=== PATIENT | male | born 1980 | race Caucasian/White ===

== ENCOUNTER 2020-04-19 18:32 | Emergency (ER) | payer BC ==
[2020-04-19] MEDS ORDERED: fentaNYL 100 MCG/2 ML SDV IVPUSH ONE (18:57)
[2020-04-19] MEDS ORDERED: Lactated Ringers 500 ML IV ONE (18:57)
[2020-04-19] MEDS ORDERED: Lactated Ringers 1,000 ML IV SCH (19:00)
[2020-04-19] MEDS ORDERED: Sodium Chloride 0.9% 10 ML Syringe FLUSH PRN (19:07)
[2020-04-19] MEDS ORDERED: Iopamidol 755 Mg/ML 100 ML Bottle IVPUSH ONE (19:07)
[2020-04-19] MEDS ORDERED: Iopamidol 755 MG/ML 50 ML Bottle IVPUSH ONE (19:07)
--- NOTE | 2020-04-19 19:08 | EDM.PDOC ---
ED HPI GENERAL MEDICAL PROBLEM Left Shoulder Pain Score (Numeric/FACES): 9 <Jaison Pucektt - Last Filed: 04/19/20 19:02> <Tyrese Heredia - Last Filed: 04/19/20 21:48> - General Chief Complaint: Trauma Stated Complaint: [facility] Time Seen by Provider: 04/19/20 18:32 - History of Present Illness INITIAL COMMENTS - FREE TEXT/NARRATIVE: 40-year-old male brought in by [facility]. Patient was thrown off a horse landing on his left shoulder. This occurred little over an hour ago maybe an hour and a half ago. The patient has been drinking. He said 8-10 beers this afternoon. He was thrown off the horse he does not think he lost consciousness but he is not certain. He has significant shoulder pain. He is denying pain elsewhere but he is really foc used on his shoulder injury. Denies significant past medical history. He had a benign lump removed out of his throat at one point other than the surgical history is unremarkable (Jaison Puckett) I have taken over the care of this patient. I received a report from Dr. Holland. 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 [No Known Home Meds] 08/11/16 [History] Past Medical History - Past Health History Medical/Surgical History: Denies Medical/Surgical History Respiratory History: Reports: Other (See Below) Other Respiratory History: lump to throat removed-benign <Jaison Puckett - Last Filed: 04/19/20 19:02> Social & Family History - Tobacco Use Smoking Status *Q: Never Smoker - Caffeine Use Caffeine Use: Reports: Coffee - Recreational Drug Use Recreational Drug Use: No <Jaison Puckett - Last Filed: 04/19/20 19:02> Review of Systems - Review of Systems Review Of Systems: See Below Constitutional: Reports: No Symptoms Eyes: Reports: No Symptoms Ears: Reports: No Symptoms Nose: Reports: No Symptoms Mouth/Throat: Reports: No Symptoms Respiratory: Reports: Pleuritic Chest Pain, Other (Respirations are a little quick with slightly diminished O2 saturation). Denies: Cough, Sputum, Hemoptysis Cardiovascular: Reports: No Symptoms GI/Abdominal: Reports: No Symptoms Genitourinary: Reports: No Symptoms Musculoskeletal: Reports: Shoulder Pain (Shoulder on the left side is very tender it is suspected he has a clavicle injury) Skin: Reports: No Symptoms Neurological: Reports: No Symptoms Psychiatric: Reports: No Symptoms <Jaison Puckett - Last Filed: 04/19/20 19:02> ED EXAM, GENERAL - Physical Exam Exam: See Below Exam Limited By: Other (Patient states he had 8-10 beers this afternoon but otherwise answers questions appropriately) General Appearance: Alert, Moderate Distress (From the pain) Eye Exam: Bilateral Eye: EOMI, Normal Inspection, PERRL Ears: Normal External Exam, Normal Canal, Hearing Grossly Normal, Normal TMs Nose: Normal Inspection, Normal Mucosa, No Blood Throat/Mouth: Normal Inspection, Normal Lips, Normal Teeth Head: Atraumatic, Normocephalic Neck: Normal Inspection, Supple, Non-Tender, Other (Some vague left-sided discomfort with palpation a lot of this could be coming from his shoulder region). No: Lymphadenopathy (L), Lymphadenopathy (R) Respiratory/Chest: No Respiratory Distress, Lungs Clear, Normal Breath Sounds Cardiovascular: Regular Rate, Rhythm, No Edema, No Murmur GI/Abdominal: Normal Bowel Sounds, Soft, Non-Tender, Pelvis Stable Back Exam: Normal Inspection. No: CVA Tenderness (L), CVA Tenderness (R) Extremities: Normal Inspection, No Pedal Edema Neurological: Alert, Normal Cognition, No Motor/Sensory Deficits Psychiatric: Anxious (Appropriately so given his discomfort and injury) Skin Exam: Warm, Dry, Intact Lymphatic: No Adenopathy <Jaison Puckett - Last Filed: 04/19/20 19:02> Course <Jaison Puckett - Last Filed: 04/19/20 19:02> <Tyrese Heredia - Last Filed: 04/19/20 21:48> - Vital Signs Last Recorded V/S: Last Vital Signs Temp 98.1 F 04/19/20 19:25 Pulse 86 04/19/20 19:25 Resp 21 H 04/19/20 19:25 BP 117/81 04/19/20 19:25 Pulse Ox 96 04/19/20 19:25 - Orders/Labs/Meds Orders: Active Orders 24 hr Category Date Time Status Cervical Spine wo Cont [CT] Stat Exams 04/19/20 18:53 Taken Chest 1V Frontal [CR] Stat Exams 04/19/20 18:52 Taken Chest Abdomen Pelvis w Cont [CT] Stat Exams 04/19/20 18:53 Ordered Head wo Cont [CT] Stat Exams 04/19/20 18:53 Ordered CORONAVIRUS COVID-19 RAPID [MOLEC] Stat Lab 04/19/20 20:59 Received PATIENT RETYPE [BBK] Routine Lab 04/19/20 19:59 Ordered Lactated Ringers [Ringers, Lactated] 1,000 ml Med 04/19/20 19:00 Active IV ASDIRECTED Sodium Chloride 0.9% [Saline Flush] Med 04/19/20 19:07 Active 10 ml FLUSH ONETIME PRN Medication Orders Lactated Ringer's (Ringers, Lactated) 1,000 mls @ 150 mls/hr IV ASDIRECTED ERIC Last Admin: 04/19/20 19:58 Dose: 150 mls/hr Documented by: JOEY Sodium Chloride (Saline Flush) 10 ml FLUSH ONETIME PRN PRN Reason: IV FLUSH Last Admin: 04/19/20 19:38 Dose: 10 ml Documented by: DRAGAN Labs: Laboratory Tests 04/19/20 04/19/20 04/19/20 Range/Units 18:40 18:40 18:40 WBC 17.43 H (4.23-9.07) K/mm3 RBC 5.03 (4.63-6.08) M/mm3 Hgb 14.6 (13.7-17.5) gm/dl Hct 43.2 (40.1-51.0) % MCV 85.9 (79.0-92.2) fl MCH 29.0 (25.7-32.2) pg MCHC 33.8 (32.2-35.5) g/dl RDW Std Deviation 40.9 (35.1-43.9) fL Plt Count 266 (163-337) K/mm3 MPV 9.5 (9.4-12.3) fl Neut % (Auto) 82.0 H (34.0-67.9) % Lymph % (Auto) 10.2 L (21.8-53.1) % Elliott % (Auto) 6.3 (5.3-12.2) % Eos % (Auto) 1.1 (0.8-7.0) Baso % (Auto) 0.1 (0.1-1.2) % Neut # (Auto) 14.29 H (1.78-5.38) K/mm3 Lymph # (Auto) 1.78 (1.32-3.57) K/mm3 Elliott # (Auto) 1.09 H (0.30-0.82) K/mm3 Eos # (Auto) 0.19 (0.04-0.54) K/mm3 Baso # (Auto) 0.02 (0.01-0.08) K/mm3 Manual Slide Review Normal smear PT 10.5 (9.7-11.7) SECONDS INR 0.98 APTT 22 (22-31) SECONDS Sodium 138 (136-145) mEq/L Potassium 3.9 (3.5-5.1) mEq/L Chloride 103 (98-107) mEq/L Carbon Dioxide 26 (21-32) mEq/L Anion Gap 12.9 (5-15) BUN 17 (7-18) mg/dL Creatinine 1.1 (0.7-1.3) mg/dL Est Cr Clr Drug Dosing 110.69 mL/min Estimated GFR (MDRD) > 60 (>60) mL/min BUN/Creatinine Ratio 15.5 (14-18) Glucose 124 H (74-106) mg/dL Lactic Acid (0.4-2.0) mmol/L Calcium 8.8 (8.5-10.1) mg/dL Total Bilirubin 0.2 (0.2-1.0) mg/dL AST 22 (15-37) U/L ALT 35 (16-63) U/L Alkaline Phosphatase 111 (46-116) U/L Total Protein 7.4 (6.4-8.2) g/dl Albumin 4.2 (3.4-5.0) g/dl Globulin 3.2 gm/dL Albumin/Globulin Ratio 1.3 (1-2) Amylase 32 (25-115) U/L Urine Color (Yellow) Urine Appearance (Clear) Urine pH (5.0-8.0) Ur Specific [place] (1.005-1.030) Urine Protein (Negative) Urine Glucose (UA) (Negative) Urine Ketones (Negative) Urine Occult Blood (Negative) Urine Nitrite (Negative) Urine Bilirubin (Negative) Urine Urobilinogen (0.2-1.0) Ur Leukocyte Esterase (Negative) Urine RBC (0-5) /hpf Urine WBC (0-5) /hpf Ur Squamous Epith Cells (0-5) /hpf Urine Bacteria (FEW) /hpf Urine Mucus (FEW) /hpf Ethyl Alcohol 0.00 (0.00) gm% Blood Type Gel Antibody Screen 04/19/20 04/19/20 04/19/20 Range/Units 18:40 18:40 20:55 WBC (4.23-9.07) K/mm3 RBC (4.63-6.08) M/mm3 Hgb (13.7-17.5) gm/dl Hct (40.1-51.0) % MCV (79.0-92.2) fl MCH (25.7-32.2) pg MCHC (32.2-35.5) g/dl RDW Std Deviation (35.1-43.9) fL Plt Count (163-337) K/mm3 MPV (9.4-12.3) fl Neut % (Auto) (34.0-67.9) % Lymph % (Auto) (21.8-53.1) % Elliott % (Auto) (5.3-12.2) % Eos % (Auto) (0.8-7.0) Baso % (Auto) (0.1-1.2) % Neut # (Auto) (1.78-5.38) K/mm3 Lymph # (Auto) (1.32-3.57) K/mm3 Elliott # (Auto) (0.30-0.82) K/mm3 Eos # (Auto) (0.04-0.54) K/mm3 Baso # (Auto) (0.01-0.08) K/mm3 Manual Slide Review PT (9.7-11.7) SECONDS INR APTT (22-31) SECONDS Sodium (136-145) mEq/L Potassium (3.5-5.1) mEq/L Chloride (98-107) mEq/L Carbon Dioxide (21-32) mEq/L Anion Gap (5-15) BUN (7-18) mg/dL Creatinine (0.7-1.3) mg/dL Est Cr Clr Drug Dosing mL/min Estimated GFR (MDRD) (>60) mL/min BUN/Creatinine Ratio (14-18) Glucose (74-106) mg/dL Lactic Acid 1.9 (0.4-2.0) mmol/L Calcium (8.5-10.1) mg/dL Total Bilirubin (0.2-1.0) mg/dL AST (15-37) U/L ALT (16-63) U/L Alkaline Phosphatase (46-116) U/L Total Protein (6.4-8.2) g/dl Albumin (3.4-5.0) g/dl Globulin gm/dL Albumin/Globulin Ratio (1-2) Amylase (25-115) U/L Urine Color Yellow (Yellow) Urine Appearance Clear (Clear) Urine pH 5.5 (5.0-8.0) Ur Specific [place] 1.015 (1.005-1.030) Urine Protein Negative (Negative) Urine Glucose (UA) Negative (Negative) Urine Ketones Negative (Negative) Urine Occult Blood Trace-intact H (Negative) Urine Nitrite Negative (Negative) Urine Bilirubin Negative (Negative) Urine Urobilinogen 0.2 (0.2-1.0) Ur Leukocyte Esterase Negative (Negative) Urine RBC Not seen (0-5) /hpf Urine WBC 0-5 (0-5) /hpf Ur Squamous Epith Cells 0-5 (0-5) /hpf Urine Bacteria Not seen (FEW) /hpf Urine Mucus Not seen (FEW) /hpf Ethyl Alcohol (0.00) gm% Blood Type O POSITIVE Gel Antibody Screen Negative Meds: Medications Generic Name Dose Route Start Last Admin Trade Name Freq PRN Reason Stop Dose Admin Lactated Ringer's 1,000 mls @ 150 mls/hr 04/19/20 19:00 04/19/20 19:58 Ringers, Lactated IV 150 mls/hr ASDIRECTED ERIC Administration Sodium Chloride 10 ml 04/19/20 19:07 04/19/20 19:38 Saline Flush FLUSH 10 ml ONETIME PRN Administration IV FLUSH Discontinued Medications Generic Name Dose Route Start Last Admin Trade Name Freq PRN Reason Stop Dose Admin Fentanyl 50 mcg 04/19/20 18:57 04/19/20 19:05 Sublimaze IVPUSH 04/19/20 18:58 50 mcg ONETIME ONE Administration Hydromorphone HCl Confirm 04/19/20 20:18 04/19/20 20:33 Dilaudid Administered 04/19/20 20:19 0.5 mg Dose Administration 0.5 mg .ROUTE .STK-MED ONE Hydromorphone HCl 0.5 mg 04/19/20 20:25 04/19/20 20:51 Dilaudid IVPUSH 04/19/20 20:26 0.5 mg ONETIME ONE Administration Lactated Ringer's 500 mls @ 999 mls/hr 04/19/20 18:57 04/19/20 19:05 Ringers, Lactated IV 04/19/20 19:27 999 mls/hr .BOLUS ONE Administration Iopamidol 50 ml 04/19/20 19:07 04/19/20 19:38 Isovue-370 (76%) IVPUSH 04/19/20 19:08 50 ml ONETIME ONE Administration Iopamidol 100 ml 04/19/20 19:07 04/19/20 19:38 Isovue-370 (76%) IVPUSH 04/19/20 19:08 100 ml ONETIME ONE Administration - Radiology Interpretation Free Text/Narrative:: x-ray of the chest does not show much other than that left clavicle fracture. He does not have a great inspiration and so I really cannot tell about the lung rowley. CT scan of his head did not show any acute intracranial process. CT scan of the neck does not show any acute fractures though the left first rib is noted to be fractured. CT scan of the chest with contrast shows a left clavicle fracture then he is got fractures posteriorly of 1 through 5 ribs on the left and ribs 3 and 4 actually have 2 fractures which means some mild flail chest. He also has a pulmonary contusion in the lingula of the left upper lobe noted adjacent to the fifth rib. Be noted that there was no vascular damage or disruption noted with a CT scan of the chest. CT scan of the abdomen and pelvis does not reveal any acute intra-abdominal or intrapelvic injuries. (Tyrese Heredia) - Re-Assessments/Exams Free Text/Narrative Re-Assessment/Exam: 04/19/20 19:18 Patient had a chest x-ray done before going over to CT I was worried about the possibility of a pneumothorax I do not see this on a portable chest x-ray however it was a poor quality poor inspiration study he has an obvious left clavicle fracture.. Labs pending CT results pending at this time is change of shift further care and disposition per Dr. Heredia. (Jaison Puckett) Free Text/Narrative Re-Assessment/Exam: 04/19/20 19:43 I am taking over this patient's care at this time. I was given report about this patient by Dr. Holland. 04/19/20 20:28 I reevaluate the patient he is having small gasping respirations secondary to the pain in his left shoulder and left upper chest. If you observe carefully he does have a pulsation up there with breathing suggesting that ribs 3 and 4 are flailing slightly but I do not feel any crepitus in the skin. He does not appea r to have any obvious trauma to his upper extremities or lower extremities. He denies any hip pain or pelvis pain. He denies any head trauma and I do not see any obvious abrasions or contusions to his head. I did speak to Dr. Hercules at [facility] in [place] and she is the trauma surgeon conference assistant and she accepts the patient in transport for further evaluation and treatment. 04/19/20 20:58 Spoke to the patient regarding the transfer to [facility]. I also spoke to his , Vivi, at [phone] regarding the patient's injuries, with his permission, and is transferred to [facility] for observation and pain control. 04/19/20 21:48 The patient has been loaded onto the ambulance and he is on his way down to [facility]. He is in stable condition. (Tyrese Heredia) Departure <Jaison Puckett - Last Filed: 04/19/20 19:02> - Departure Time of Disposition: 20:31 Condition: Fair <Tyrese Heredia - Last Filed: 04/19/20 21:48> - Departure Disposition: DC/Tfer to [facility] Clinical Impression: Closed left clavicular fracture, Multiple fractures of ribs, left side, initial encounter for closed fracture, Hypoxemia Closed flail chest Qualifiers: Encounter type: initial encounter Qualified Code(s): S22.5XXA - Flail chest, initial encounter for closed fracture - Discharge Information Referrals: PCP,None [Primary Care Provider] - Sepsis Event Note (ED) - Evaluation Sepsis Screening Result: No Definite Risk <Jaison Puckett - Last Filed: 04/19/20 19:02> - Focused Exam Vital Signs: Vital Signs Temp Pulse Resp BP Pulse Ox 04/19/20 19:25 98.1 F 86 21 H 117/81 96 04/19/20 18:40 97.1 F 75 20 142/76 H 88 L ED Communication - ED Communication Date/Time Date: 04/19/20 Time Called: 20:34 - Discussed Case With (1) Discussed Case With (1): Admitting Provider Person/s Notified (1): Aleyda Hercules (She agrees to accept the patient in transport for further evaluation and treatment at [facility].) <Tyrese Heredia - Last Filed: 04/19/20 21:48> - My Orders Last 24 Hours: My Active Orders 04/19/20 20:59 CORONAVIRUS COVID-19 RAPID [MOLEC] Stat - Assessment/Plan Last 24 Hours: My Active Orders 04/19/20 20:59 CORONAVIRUS COVID-19 RAPID [MOLEC] Stat
[2020-04-19] MEDS ORDERED: HYDROmorphone 0.5 MG/0.5 ML Syringe ONE (20:18)
[2020-04-19] MEDS ORDERED: HYDROmorphone 0.5 MG/0.5 ML Syringe IVPUSH ONE (20:25)
[2020-04-19 21:36] VITALS: BP 117/81; PULSE 86
--- NOTE | 2020-04-20 09:16 | CR ---
Chest: Frontal view of the chest was obtained. Comparison: No prior chest imaging. Heart is felt to be slightly prominent. Pulmonary vessels are increased. Lungs otherwise are clear. Bony structures shows a fracture within the shaft of the clavicle. Clavicle fracture shows displacement and foreshortening. Impression: 1. Heart size slightly prominent and increased pulmonary vessels. Findings may relate to supine projection and patient body habitus. 2. Left clavicle fracture as noted above. Diagnostic code #3 This report was dictated in MDT
--- NOTE | 2020-04-20 09:36 | CT ---
CT chest Technique: Multiple axial sections were obtained from above the lung apices inferiorly through the lung bases. Intravenous contrast was utilized. Reconstructed coronal and sagittal images were obtained. Findings: Mediastinum and hilar regions appear within normal limits. Aorta shows no aneurysm. No mediastinal hematoma is appreciated. No pericardial effusion is seen. Patchy increased density within both sides of the chest which are most likely due to areas of atelectasis. Probable small pulmonary contusion is seen within the lingula. Fracture is noted within the posterior first rib, third rib, fourth rib, fifth rib, sixth rib, seventh rib and eighth rib. These fractures show no significant displacement. Displaced fracture is noted within the anterolateral left second rib. Nondisplaced fracture within the anterolateral left third rib. Displaced fracture is noted within the anterolateral left fourth rib. No right-sided rib fractures are appreciated. Vertebral body heights and disc spaces are maintained. No discrete fracture is appreciated within the thoracic spine. Small amount of air is noted within the chest wall next to the anterolateral left-sided rib fractures. Left clavicle fracture is again noted. Impression: 1. Multiple nondisplaced left-sided rib fractures some of which occur in 2 locations. Displaced fractures are noted within the anterior lateral left second rib and fourth rib. Small amount of chest wall air is noted in the area of displaced rib fractures. 2. Small area of lung contusion seen within the lingula. 3. No definite pneumothorax is seen at this time. 4. Patchy areas of increased density within both sides of the chest most likely due to atelectasis. 5. Left clavicle fracture is again noted. Diagnostic code #5 This report was dictated in MDT I agree with preliminary report from [facility], finalized on 04/19/20, 8:[address] abdomen and pelvis Technique: Multiple axial sections were obtained from above the dome of the diaphragm inferiorly through the pubic symphysis. Intravenous contrast was utilized. No oral contrast has been given. Delayed images were obtained through the bladder. Reconstructed coronal and sagittal images were obtained. Limitations: Artifact is noted from the patient's arms. Comparison: No prior CT abdomen or pelvis study is available. Findings: Liver shows no discrete abnormality. Spleen appears normal. Adrenal glands contain no nodule. Pancreas is within normal limits. Gallbladder contains no calcified gallstones. Kidneys show symmetric contrast enhancement without hydronephrosis or mass. Aorta shows no aneurysm. No retroperitoneal adenopathy or mesenteric abnormalities are seen. Small fat-containing umbilical hernia is noted. No pelvic mass or adenopathy is seen. No free fluid or inflammatory change is appreciated. Appendix is not visualized with certainty. Bone window settings were reviewed. No acute osseous finding is appreciated within the pelvis or within the lumbar spine. Delayed images shows contrast within both distal ureters and within the bladder. Impression: 1. Nothing acute is appreciated on CT study of the abdomen and pelvis. Diagnostic code #1 This report was dictated in MDT I agree with preliminary report from [email or web address], finalized on 04/19/20, 8:51 PM Central Daylight Time
--- NOTE | 2020-04-20 09:36 | CT ---
CT cervical spine Technique: Multiple axial sections were obtained from above C1 inferiorly to the mid T2 level. Reconstructed sagittal and coronal images were reviewed. Comparison: No previous study is available. Findings: Vertebral body heights and disc spaces are maintained. Vertebral bodies and posterior arches are intact. No fracture is appreciated within the cervical spine. Fracture is identified within the posterior first rib with nondisplaced fracture within the posterior left third rib. No bony central or bony neural foraminal stenosis is seen. Impression: 1. Fracture within the posterior left first rib and nondisplaced fracture within the posterior left third rib. 2. No cervical spine fracture is identified. Diagnostic code #3 This report was dictated in MDT I agree with preliminary report from [facility], finalized on 04/19/20, 8:48 PM Central Daylight Time
--- NOTE | 2020-04-20 09:36 | CT ---
Head CT Technique: Multiple axial sections through the brain were obtained. Intravenous contrast was not utilized. Comparison: No prior intracranial imaging is available. Findings: Ventricles along with basal cisterns and sulci over the convexities are within normal limits for the patient's age. No abnormal parenchymal densities are seen. No evidence of intracranial imaging. No midline shift or mass-effect is appreciated. Bone window settings were reviewed. No acute calvarial finding is seen. Slight soft tissue densities are noted within the maxillary sinuses most likely representing minimal retention cysts which are nonacute. No mastoid sinus findings are seen. Impression: 1. Minimal sinus findings within the maxillary sinuses which are most likely chronic. 2. No acute intracranial abnormality is identified. Diagnostic code #2 This report was dictated in MDT I agree with preliminary report from [facility], finalized on 04/19/20, 8:35 PM Central Daylight Time
== END 2020-04-19 21:20 ==
LOC: JD.ED 18:32
DX: S22.5XXA Flail chest, initial encounter for closed fracture (principal); S42.002A Fracture of unspecified part of left clavicle, initial encounter for closed fracture; Z20.828 Contact with and (suspected) exposure to other viral communicable diseases; R09.02 Hypoxemia; V80.010A Animal-rider injured by fall from or being thrown from horse in noncollision accident, initial encounter
CPT/HCPCS: 36415; 70450; 71045; 71260; 72125; 74177; 80053; 80307; 81001; 82150; 83605; 85025; 85610; 85730; 86850; 86900; 86901; 87635; 96361; 96374; 96375; 99285; J1170; J3010; J7120; Q9967; U0002